=== PATIENT | male | born 1960 | race Caucasian/White ===

== ENCOUNTER 2023-02-03 06:28 | Day surgery (SDC) | payer OTHER ==
[~2023-02-03] VITALS: Ht 177.8 cm; Wt 145.1 kg
[2023-02-03] MEDS ORDERED: MIDAZOLAM HCL 5 MG/5 ML VIAL ONE (07:21)
[2023-02-03] MEDS ORDERED: fentaNYL CITRATE/PF 100 MCG/2 ML AMP ONE (07:21)
[2023-02-03] MEDS ORDERED: SIMETHICONE 40 MG/0.6 ML ML ONE (07:21)
[2023-02-03 14:09] VITALS: O2SAT 96
[2023-02-03 14:22] VITALS: BP_SYST 116; PULSE 76; RESP 16
== END 2023-02-03 08:50 | disposition home or self-care (01) ==
LOC: SDS 06:28 → SMU 06:33 → SDS 08:50
PROVIDERS: ATTEND Internal Medicine
DX: Z12.11 Encounter for screening for malignant neoplasm of colon (principal); Z86.010 Personal history of colon polyps; I10 Essential (primary) hypertension; E11.9 Type 2 diabetes mellitus without complications; E78.5 Hyperlipidemia, unspecified; Z85.46 Personal history of malignant neoplasm of prostate; Z79.4 Long term (current) use of insulin; Z79.899 Other long term (current) drug therapy
CPT/HCPCS: 45378; 82962; G0378; J2250; J3010